=== PATIENT | female | born 1965 | race African-American/Black ===

== ENCOUNTER 2022-01-12 10:10 | Inpatient (IN) | payer MEDICARE, MEDICAID ==
[2022-01-12 10:24] LABS: Bilirubin Neg (Negative); Blood, Urine 250 (Negative); Clarity Sl. Cloudy (Clear); Glucose, Urine (Dipstick) Normal (Negative); Ketone, Urine Negative (Negative); Leukocyte 500 (Negative); Nitrite Negative (Negative); Protein, Urine (Dipstick) 100 mg/dl (Neg-Trace); Specific Gravity, Urine 1.015 (1.005-1.030); Urobilinogen Normal mg/dL (Less than 2)
[2022-01-12] MEDS ORDERED: Cefepime 2 GM VIAL ONE (10:29)
[2022-01-12 10:40] LABS: Bacteria/HPF 2+ HPF (None Seen); Squamous Epithelial 0-3 HPF (0-3); WBC/HPF Greater Than 50 HPF (0-3)
[2022-01-12] MEDS ORDERED: Vancomycin HCl 1.5 GM in Sodium Chloride 0.9% 250 ML 300 ML IVPB SCH (10:45)
[2022-01-12 11:25] LABS: #Monocytes 0.7 10x3/uL (0.0-1.1); #Neutrophils 5.7 10x3/uL (1.5-8.4); %Basophils 0.2 % (0.0-2.0); %Eosinophils 0.4 % (0.0-6.0); %Lymphocytes 29.2 % (18.0-47.0); %Monocytes 7.4 % (0.0-10.0); %Neutrophils 62.4 % (40.0-75.0); Hemoglobin 8.9 g/dL (12.0-15.5); Mean Corpuscular HGB CONC 32.5 g/dL (32.0-36.0); Mean Corpuscular Hemoglobin 34.4 pg (27.0-33.0); Mean Corpuscular Volume 105.8 fl (81.6-98.3); Mean Platelet Volume 9.4 fl (7.4-10.4); Platelet Count 154 10x3/uL (150-450); RBC Distribution Width 14.3 % (11.5-14.5); Red Blood Cell (RBC) Count 2.59 10x6/uL (3.90-5.03); White Blood Cell (WBC) Count 9.1 10x3/uL (3.5-10.5)
[2022-01-12 11:35] LABS: ALT (SGPT) 19 U/L (8-55); AST (SGOT) 21 U/L (5-34); Albumin 2.9 g/dL (3.5-5.0); Alkaline Phosphatase 57 U/L (40-110); Anion Gap 16 mmol/L (10-20); BUN (Urea Nitrogen) 39 mg/dL (9.8-20.1); Bilirubin, Total 0.3 mg/dL (0.2-1.2); Calc. Creatinine Clearance 0 mL/min (70-130); Carbon Dioxide 18 mmol/L (22-29); Chloride 116 mmol/L (98-107); Estimated GFR 30; Globulin 4.1 g/dL (2.4-3.5); Glucose 115 mg/dL (70-105); Potassium 4.7 mmol/L (3.5-5.1); Sodium 145 mmol/L (136-145)
[2022-01-12] MEDS ORDERED: Ondansetron PF 4 MG/2 ML Vial IVP PRN (12:44)
[2022-01-12 13:21] LABS: Hypochromia SLIGHT = 6-15 cells (100X) (0-5/hpf); Macrocytosis SLIGHT = 6-15 cells (100X) (0-5/hpf); Platelet Morphology Comment Appears Decreased
[2022-01-12 13:23] LABS: SARS-CoV-2 NAA Rapid Test Not Detected (NotDetected)
[2022-01-12 14:02] VITALS: BMI 33.7
[2022-01-12] MEDS: Lactated Ringer's 1,000 ML IV SCH (14:20)
[2022-01-12] MEDS ORDERED: HumaLOG 300 UNITS/3 ML VIAL SC PRN (14:32)
[2022-01-12] MEDS ORDERED: Dextrose 50% Abboject 50 ML SYRINGE SLOW IVP PRN (14:32)
[2022-01-12] MEDS ORDERED: Dextrose 5% in Water 1,000 ML IV PRN (14:32)
[2022-01-12] MEDS: Atorvastatin Calcium 20 MG TAB PO SCH (20:57)
[2022-01-12] MEDS: Metoprolol Tartrate 25 MG TAB PO SCH (20:57)
[2022-01-12] MEDS: Temazepam 15 MG CAP PO SCH (20:57)
[2022-01-12] MEDS: Lantus 1000 UNITS/10 ML VIAL SC SCH (21:00)
[2022-01-13] MEDS: Cefepime 2 GM in Sodium Chloride 0.9% 100 ML IVPB SCH ×3 (00:54→23:58)
[2022-01-13] MEDS: Lactated Ringer's 1,000 ML IV SCH ×2 (00:55→16:23)
[2022-01-13 04:29] LABS: #Eosinphils 0.1 10x3/uL (0.0-0.5); #Monocytes 0.8 10x3/uL (0.0-1.1); #Neutrophils 4.3 10x3/uL (1.5-8.4); %Basophils 0.5 % (0.0-2.0); %Eosinophils 1.6 % (0.0-6.0); %Lymphocytes 37.6 % (18.0-47.0); %Monocytes 9.9 % (0.0-10.0); %Neutrophils 49.9 % (40.0-75.0); Hemoglobin 8.4 g/dL (12.0-15.5); Mean Corpuscular HGB CONC 32.4 g/dL (32.0-36.0); Mean Corpuscular Hemoglobin 34.1 pg (27.0-33.0); Mean Corpuscular Volume 105.3 fl (81.6-98.3); Mean Platelet Volume 8.9 fl (7.4-10.4); Platelet Count 227 10x3/uL (150-450); RBC Distribution Width 14.3 % (11.5-14.5); Red Blood Cell (RBC) Count 2.46 10x6/uL (3.90-5.03); White Blood Cell (WBC) Count 8.5 10x3/uL (3.5-10.5)
[2022-01-13 04:37] LABS: ALT (SGPT) 15 U/L (8-55); Albumin 2.4 g/dL (3.5-5.0); Alkaline Phosphatase 44 U/L (40-110); Anion Gap 12 mmol/L (10-20); BUN (Urea Nitrogen) 31 mg/dL (9.8-20.1); Bilirubin, Total 0.4 mg/dL (0.2-1.2); Calc. Creatinine Clearance 80 mL/min (70-130); Calcium 7.8 mg/dL (7.8-10.44); Carbon Dioxide 17 mmol/L (22-29); Chloride 115 mmol/L (98-107); Estimated GFR 52; Glucose 93 mg/dL (70-105); Potassium 5.5 mmol/L (3.5-5.1); Protein, Total 6.4 g/dL (6.0-8.3); Sodium 138 mmol/L (136-145)
[2022-01-13 04:52] LABS: AST (SGOT) 20 U/L (5-34)
[2022-01-13 05:26] LABS: Macrocytosis SLIGHT = 6-15 cells (100X) (0-5/hpf)
[2022-01-13 05:28] LABS: Platelet Morphology Comment Appears Adequate
[2022-01-13 05:42] LABS: Anion Gap 10 mmol/L (10-20); BUN (Urea Nitrogen) 30 mg/dL (9.8-20.1); Calc. Creatinine Clearance 84 mL/min (70-130); Calcium 7.9 mg/dL (7.8-10.44); Carbon Dioxide 19 mmol/L (22-29); Chloride 115 mmol/L (98-107); Estimated GFR 56; Glucose 103 mg/dL (70-105); Potassium 4.1 mmol/L (3.5-5.1); Sodium 140 mmol/L (136-145)
[2022-01-13] MEDS: Folic Acid 1 MG TAB PO SCH (08:44)
[2022-01-13] MEDS: Metoprolol Tartrate 25 MG TAB PO SCH ×2 (08:44→21:01)
[2022-01-13] MEDS: Enoxaparin Sodium 40 MG/0.4 ML SYRINGE SC SCH (08:44)
[2022-01-13] MEDS: levETIRAcetam 500 MG TAB PO SCH (08:44)
[2022-01-13] MEDS: Aspirin Chewable 81 MG TAB PO SCH (08:45)
[2022-01-13] MEDS: Lantus 1000 UNITS/10 ML VIAL SC SCH ×2 (08:45→20:00)
[2022-01-13] MEDS: Polyethylene Glycol 3350 17 GM Packet PO SCH (08:45)
[2022-01-13] MEDS: Temazepam 15 MG CAP PO SCH (21:01)
[2022-01-13] MEDS: Atorvastatin Calcium 20 MG TAB PO SCH (21:01)
[2022-01-13] MEDS: Acetaminophen 325 MG TAB PO PRN (21:01)
[2022-01-14] MEDS: Lactated Ringer's 1,000 ML IV SCH ×2 (06:00→18:52)
[2022-01-14] MEDS: Folic Acid 1 MG TAB PO SCH (08:45)
[2022-01-14] MEDS: levETIRAcetam 500 MG TAB PO SCH (08:45)
[2022-01-14] MEDS: Aspirin Chewable 81 MG TAB PO SCH (08:45)
[2022-01-14] MEDS: Enoxaparin Sodium 40 MG/0.4 ML SYRINGE SC SCH (08:45)
[2022-01-14] MEDS: Metoprolol Tartrate 25 MG TAB PO SCH ×2 (08:45→20:11)
[2022-01-14] MEDS: Lantus 1000 UNITS/10 ML VIAL SC SCH ×2 (08:46→20:11)
[2022-01-14] MEDS ORDERED: Cyanocobalamin 1000 MCG/ML VIAL IM SCH (09:00)
[2022-01-14] MEDS: Polyethylene Glycol 3350 17 GM Packet PO SCH (09:25)
[2022-01-14 11:52] LABS: Bilirubin Neg (Negative); Blood, Urine 250 (Negative); Clarity Cloudy (Clear); Glucose, Urine (Dipstick) Normal (Negative); Ketone, Urine Negative (Negative); Leukocyte 500 (Negative); Nitrite Negative (Negative); Protein, Urine (Dipstick) 100 mg/dl (Neg-Trace); Urobilinogen Normal mg/dL (Less than 2)
[2022-01-14 12:13] LABS: Bacteria/HPF 1+ HPF (None Seen); WBC/HPF Greater Than 50 HPF (0-3)
[2022-01-14] MEDS: Cefepime 2 GM in Sodium Chloride 0.9% 100 ML IVPB SCH ×2 (12:14→23:10)
[2022-01-14 12:15] LABS: Urine Culture Reflex No No
[2022-01-14] MEDS: Acetaminophen 325 MG TAB PO PRN (20:10)
[2022-01-14] MEDS: Atorvastatin Calcium 20 MG TAB PO SCH (20:11)
[2022-01-14] MEDS: Temazepam 15 MG CAP PO SCH (20:11)
[2022-01-15] MEDS: Lactated Ringer's 1,000 ML IV SCH (09:37)
[2022-01-15] MEDS: Lantus 1000 UNITS/10 ML VIAL SC SCH (09:53)
[2022-01-15] MEDS: Cefepime 2 GM in Sodium Chloride 0.9% 100 ML IVPB SCH (10:42)
[2022-01-15] MEDS: Polyethylene Glycol 3350 17 GM Packet PO SCH (12:33)
[2022-01-15 13:28] VITALS: BP 130/83; TEMP 98.1
[2022-01-15] MEDS: Aspirin Chewable 81 MG TAB PO SCH (17:04)
[2022-01-15] MEDS: Folic Acid 1 MG TAB PO SCH (17:04)
[2022-01-15] MEDS: Enoxaparin Sodium 40 MG/0.4 ML SYRINGE SC SCH (17:04)
[2022-01-15] MEDS: levETIRAcetam 500 MG TAB PO SCH (17:04)
[2022-01-15] MEDS: Metoprolol Tartrate 25 MG TAB PO SCH (17:05)
== END 2022-01-15 18:45 | DRG 689 ==
LOC: CSHERS 10:10 → SUATTDRO 10:10 → CSHTELE 13:12 → UNDODISIN 01-14 15:54
PROVIDERS: ADMIT Internal Medicine; ATTEND Hospitalist
DX: N39.0 Urinary tract infection, site not specified (principal); G93.41 Metabolic encephalopathy; I69.354 Hemiplegia and hemiparesis following cerebral infarction affecting left non-dominant side; Z20.822 Contact with and (suspected) exposure to COVID-19; K21.9 Gastro-esophageal reflux disease without esophagitis; R40.0 Somnolence; G40.909 Epilepsy, unspecified, not intractable, without status epilepticus; E11.649 Type 2 diabetes mellitus with hypoglycemia without coma; E78.5 Hyperlipidemia, unspecified; E66.09 Other obesity due to excess calories; Z79.4 Long term (current) use of insulin; Z79.82 Long term (current) use of aspirin; Z79.899 Other long term (current) drug therapy; Z68.33 Body mass index [BMI] 33.0-33.9, adult
CPT/HCPCS: 36416; 51702; 71045; 80053; 81001; 81003; 81015; 82607; 83605; 85025; 87040; 87077; 87086; 87149; 87186; 93005; 96361; 96365; 96375; J0692; J1650; J1815; J3370; J3420; J3490; J7050; J7120; U0002